=== PATIENT | male | born 1950 | race Caucasian/White ===

== ENCOUNTER → 2016-05-22 | Outpatient (CLI) | payer MEDICARE ==
[2016-05-22 17:18] LABS: ABSOLUTE BASOPHILS # (AUTO) 0.1 10^3/uL (0.0-0.2); ABSOLUTE EOSINOPHILS # (AUTO) 0.3 10^3/uL (0.0-0.6); ABSOLUTE LYMPHOCYTES (AUTO) 1.7 10^3/uL (0.5-4.7); ABSOLUTE MONOCYTES (AUTO) 1.1 10^3/uL (0.1-1.4); ABSOLUTE NEUT (AUTO) 5.4 10^3/uL (1.7-8.2); BASOPHILS % (AUTO) 1.1 % (0-2); EOSINOPHILS % (AUTO) 3.2 % (0-6); HEMATOCRIT 38.4 % (37.9-51.0); HGB HCT DIFFERENCE -2.4; LYMPHOCYTES % (AUTO) 19.6 % (13-45); MEAN CORPUSCULAR HEMOGLOBIN 23.8 pg (27.0-33.4); MEAN CORPUSCULAR HGB CONC 31.2 g/dL (32.0-36.0); MEAN CORPUSCULAR VOLUME 77 fl (80-97); MONOCYTES % (AUTO) 12.4 % (3-13); RED BLOOD COUNT 5.02 10^6/uL (4.35-5.55); RED CELL DISTRIBUTION WIDTH 17.1 % (11.5-14.0); SEGMENTED NEUTROPHILS % (AUTO) 63.7 % (42-78); WHITE BLOOD COUNT 8.5 10^3/uL (4.0-10.5)
[2016-05-22 17:33] LABS: PROTHROMBIN TIME 16.4 SEC (11.4-15.4)
[2016-05-22 17:45] LABS: ANION GAP 17 (5-19); BLOOD UREA NITROGEN 27 mg/dL (7-20); CALCIUM 10.1 mg/dL (8.4-10.2); CARBON DIOXIDE 24 mmol/L (22-30); CHLORIDE 103 mmol/L (98-107); CREATININE RESULT 1.51 mg/dL (0.52-1.25); GLUCOSE 106 mg/dL (75-110); POTASSIUM 4.1 mmol/L (3.6-5.0); SODIUM 143.5 mmol/L (137-145)
== END ==
LOC: OD 16:29
PROVIDERS: ATTEND Internal Medicine Interventional Cardiology
DX: I47.1 Supraventricular tachycardia (principal)
CPT/HCPCS: 36415; 80048; 85025; 85610

== ENCOUNTER 2017-12-17 10:13 | Emergency (ER) | payer MEDICARE ==
[2017-12-17] MEDS ORDERED: NORMAL SALINE 1000 ML 1,000 ML IV ONE (10:20)
--- NOTE | 2017-12-17 10:20 | ER Document Report ---
ED General - General Stated Complaint: BLOOD SUGAR ISSUES Time Seen by Provider: 12/17/17 10:20 TRAVEL OUTSIDE OF THE [place] IN LAST 30 DAYS: No - HPI Patient complains to provider of: weakness Notes: Well-appearing 67-year-old male resents of increasing weakness and fatigue for a few days. Patient checked his sugar this morning found to be greater than 500 heart rate greater than 100. called EMS. Patient states she just has not been feeling well for last 2 days. Patient does not regularly check his blood sugar. Abdominal pain. Patient does have history of only one kidney s/p nephrectomy @ [facility] for renal cell carcinoma Denies fever chills chest pain or cough. - Related Data Allergies/Adverse Reactions: alprazolam [From Xanax] Allergy (Verified 12/17/17 10:29) crab Allergy (Verified 12/17/17 10:29) dronedarone [From Multaq] Allergy (Verified 12/17/17 10:29) flaxseed Allergy (Verified 12/17/17 10:29) cardiolite Allergy (Uncoded 12/17/17 10:29) Past Medical History - Social History Smoking Status: Unknown if Ever Smoked Family History: None Review of Systems - Review of Systems Notes: REVIEW OF SYSTEMS: CONSTITUTIONAL: -fevers, -chills EENT: -eye pain, -difficulty swallowing, -nasal congestion CARDIOVASCULAR: -chest pain, -syncope. RESPIRATORY: -cough, -SOB GASTROINTESTINAL: -abdominal pain, -nausea, -vomiting, -diarrhea GENITOURINARY: -dysuria, -hematuria MUSCULOSKELETAL: -back pain, -neck pain SKIN: -rash or skin lesions. HEMATOLOGIC: -easy bruising or bleeding. LYMPHATIC: -swollen, enlarged glands. NEUROLOGICAL: -altered mental status or loss of consciousness, -headache, - neurologic symptoms PSYCHIATRIC: -anxiety, -depression. ALL OTHER SYSTEMS REVIEWED AND NEGATIVE. Physical Exam - Vital signs Vitals: Resp 21 H 12/17/17 10:19 - Notes Notes: PHYSICAL EXAMINATION: GENERAL: Well-appearing, well-nourished and in severe acute distress. HEAD: Atraumatic, normocephalic. EYES: Pupils equal round and reactive to light, extraocular movements intact, sclera anicteric, conjunctiva are normal. ENT: nares patent, oropharynx clear without exudates. Moist mucous membranes. NECK: Normal range of motion, supple without lymphadenopathy LUNGS: Breath sounds clear to auscultation bilaterally and equal. No wheezes rales or rhonchi. HEART: Regular rate and rhythm without murmurs ABDOMEN: tender RUQ, EXTREMITIES: Normal range of motion, no pitting or edema. No cyanosis. NEUROLOGICAL: Cranial nerves grossly intact. Normal speech, normal gait. Normal sensory and motor exams. PSYCH: Normal mood, normal affect. SKIN: Warm, Dry, normal turgor, no rashes or lesions noted. Course - Re-evaluation Re-evalutation: 12/17/17 14:19 Critically ill-appearing patient presents severe acute distress increasing weakness fatigue and hyperglycemia. now bedside states he has not been able to get off the couch and weeks due to increasing weakness. Patient also endorses some abdominal pain that his is now talking about. Patient is a poor historian not sure if it is altered secondary to hypoglycemia or fatigue and weakness. Extensive lab workup shows profound elevation in white count but no other signs of infection at this time. Sugars improved with fluid resuscitation and 12 units of IV insulin. Patient not requesting any pain medication at this time. Patient has concerning findings elevation of liver enzymes and alk phos. Patient has CAT scan abdomen and pelvis performed shows multiple metastatic lesions. Please see specific radiology report. At that time consult divided made. Speak with Dr. Jv Rowell. Patient will be transferred to [facility] for further evaluation of this new diagnosis of possible metastatic cancer increasing weakness, fatigue, failure to thrive. - Vital Signs Vital signs: Temp Pulse Resp BP Pulse Ox 98.4 F 15 128/85 H 98 12/17/17 10:33 12/17/17 12:01 12/17/17 12:01 12/17/17 12:01 - Laboratory Result Diagrams: 12/17/17 10:25 12/17/17 10:25 Laboratory results interpreted by me: 12/17/17 12/17/17 12/17/17 10:25 10:25 10:25 WBC 30.2 H* Hgb 8.9 L Hct 29.9 L MCV 68 L MCH 20.1 L MCHC 29.8 L RDW 22.2 H Seg Neuts % (Manual) 90 H Lymphocytes % (Manual) 4 L Abs Neuts (Manual) 27.2 H Abs Monocytes (Manual) 1.5 H VBG pH Sodium 127.4 L Potassium 5.4 H Chloride 95 L Carbon Dioxide 20 L BUN 30 H Glucose 480 H* POC Glucose Lactic Acid 2.3 H Calcium 8.3 L Total Bilirubin 1.5 H Direct Bilirubin 1.0 H Alkaline Phosphatase 275 H Total Protein 5.5 L Albumin 2.3 L 12/17/17 12/17/17 12/17/17 10:25 11:38 12:24 WBC Hgb Hct MCV MCH MCHC RDW Seg Neuts % (Manual) Lymphocytes % (Manual) Abs Neuts (Manual) Abs Monocytes (Manual) VBG pH 7.43 H Sodium Potassium Chloride Carbon Dioxide BUN Glucose POC Glucose 459 H* 412 H* Lactic Acid Calcium Total Bilirubin Direct Bilirubin Alkaline Phosphatase Total Protein Albumin Discharge - Discharge Clinical Impression: Hyperglycemia, Weakness, Metastatic cancer Condition: Stable Disposition: [facility] [place] Referrals: JOAN SUNG MD [NO LOCAL MD] - Follow up as needed
[2017-12-17 10:43] LABS: VENOUS BLOOD HCO3 23.1 mmol/L (20-32); VENOUS BLOOD PH 7.43 (7.30-7.42)
[2017-12-17 11:02] LABS: ALANINE AMINOTRANSFERASE 31 U/L (21-72); ALBUMIN 2.3 g/dL (3.5-5.0); ALKALINE PHOSPHATASE 275 U/L (38-126); ANION GAP 12 (5-19); ASPARTATE AMINO TRANSFERASE 31 U/L (17-59); BILIRUBIN,TOTAL 1.5 mg/dL (0.2-1.3); BLOOD UREA NITROGEN 30 mg/dL (7-20); CALCIUM 8.3 mg/dL (8.4-10.2); CARBON DIOXIDE 20 mmol/L (22-30); CHLORIDE 95 mmol/L (98-107); POTASSIUM 5.4 mmol/L (3.6-5.0); SODIUM 127.4 mmol/L (137-145); TOTAL PROTEIN 5.5 g/dL (6.3-8.2)
[2017-12-17 11:12] LABS: GLUCOSE 480 mg/dL (75-110)
[2017-12-17] MEDS ORDERED: INSULIN REG, HUMAN 100 UNIT/ML 3 ML VIAL (PYX) IV ONE (11:15)
[2017-12-17 11:57] LABS: HEMATOCRIT 29.9 % (37.9-51.0); HEMOGLOBIN 8.9 g/dL (13.5-17.0); MEAN CORPUSCULAR HEMOGLOBIN 20.1 pg (27.0-33.4); MEAN CORPUSCULAR HGB CONC 29.8 g/dL (32.0-36.0); MEAN CORPUSCULAR VOLUME 68 fl (80-97); PLATELET COUNT 398 10^3/uL (150-450); RED BLOOD COUNT 4.42 10^6/uL (4.35-5.55); RED CELL DISTRIBUTION WIDTH 22.2 % (11.5-14.0)
[2017-12-17 12:01] LABS: WHITE BLOOD COUNT 30.2 10^3/uL (4.0-10.5)
[2017-12-17 12:02] LABS: ABSOLUTE LYMPHOCYTES# (MANUAL) 1.2 10^3/uL (0.5-4.7); ABSOLUTE MONOCYTES # (MANUAL) 1.5 10^3/uL (0.1-1.4); ABSOLUTE NEUTROPHILS# (MANUAL) 27.2 10^3/uL (1.7-8.2); BASOPHILS % (MANUAL) 0 % (0-2); EOSINOPHILS % (MANUAL) 1 % (0-6); LYMPHOCYTES % (MANUAL) 4 % (13-45); MONOCYTES % (MANUAL) 5 % (3-13); SEGMENTED NEUTROPHILS % (MAN) 90 % (42-78); TOTAL CELLS COUNTED 100
[2017-12-17 12:07] LABS: TOXIC GRANULATION SLIGHT; TOXIC VACUOLATION PRESENT
[2017-12-17 12:08] LABS: ANISOCYTOSIS 3+; HYPOCHROMASIA 1+; PLATELET CLUMPS PRESENT; POIKILOCYTOSIS 1+; POLYCHROMASIA SLIGHT
[2017-12-17 12:09] LABS: PLATELET COMMENT ADEQUATE
--- NOTE | 2017-12-17 13:18 | RADIOLOGY REPORT (SQ) ---
EXAM DESCRIPTION: CT ABD/PELVIS WITH IV ONLY COMPLETED DATE/TIME: 12/17/2017 12:53 pm REASON FOR STUDY: abdominal pain COMPARISON: None. TECHNIQUE: CT scan of the abdomen and pelvis performed using helical scanning technique with dynamic intravenous contrast injection. No oral contrast. Images reviewed with lung, soft tissue, and bone windows. Reconstructed coronal and sagittal MPR images reviewed. Delayed images for evaluation of the urinary system also acquired. All images stored on PACS. All CT scanners at this facility use dose modulation, iterative reconstruction, and/or weight based d osing when appropriate to reduce radiation dose to as low as reasonably achievable (ALARA). [facility]: Dose Right [facility]: CareDose [facility]: Dose Right [facility]: Teradose 4D [facility]: Multichannel CONTRAST TYPE AND DOSE: contrast/concentration: Isovue mg/ml; Total Contrast Delivered: 100.0 ml; T otal Saline Delivered: 72.0 ml RENAL FUNCTION: BUN 30 creatinine 0.0. RADIATION DOSE: CT Rad equipment meets quality standard of care and radiation dose reduction techniq ues were employed. CTDIvol: 20.5 - 21.1 mGy. DLP: 2632 mGy-cm.. LIMITATIONS: None. FINDINGS: LOWER CHEST: Small pleural effusions. LIVER: Multiple irregular predominately low-attenuation lesions scattered throughout the liver. On e dominga contrast imaging there is suggestion of irregular peripheral enhancement. Many of these lesions measure up to 6 or 7 cm. No dilated ducts SPLEEN: Normal size. No focal lesions. PANCREAS: Irregular low-attenuation lesion in the tail measuring 3.3 x 4.3 cm. Irregular moderately thickened wall. No significant calcifications. No adjacent inflammation or peripancreatic fluid colle ctions. Pancreatic duct not dilated. GALLBLADDER: No identified stones by CT criteria. No inflammatory changes to suggest cholecystitis. ADRENAL GLANDS: No significant masses or asymmetry. RIGHT KIDNEY AND URETER: Surgically absent. LEFT KIDNEY AND URETER: No solid masses. Several calyceal calculi. No hydronephrosis or hydrouret er. AORTA AND VESSELS: No aneurysm. No dissection. Renal arteries, SMA, celiac without stenosis. RETROPERITONEUM: No retroperitoneal adenopathy, hemorrhage or masses. BOWEL AND PERITONEAL CAVITY: Previous gastric bypass. No masses or inflammatory changes. No free flu id or peritoneal masses. APPENDIX: Normal. PELVIS: No mass. No free fluid. Normal bladder. ABDOMINAL WALL: No masses. Anterior abdominal wall hernia containing several loops of bowel and colo n. BONES: No significant or acute findings. OTHER: No other significant finding. IMPRESSION: 1. MULTIPLE IRREGULAR HEPATIC LESIONS WHICH ARE SUSPICIOUS FOR METASTASES. 2. IRREGULAR LOW-ATTENUATION LESION IN THE TAIL OF THE PANCREAS CONCERNING FOR MALIGNANCY, EITHER DEBBIE JUAN R PANCREATIC NEOPLASM OR METASTATIC LESION. 3. MIDLINE ANTERIOR ABDOMINAL WALL HERNIA CONTAINING LOOPS OF BOWEL AND COLON WITH NO MECHANICAL OBST RUCTION. 4. SMALL PLEURAL EFFUSIONS. 5. NONOBSTRUCTING CALYCEAL CALCULI IN THE LEFT KIDNEY. 6. RIGHT KIDNEY SURGICALLY ABSENT. UNKNOWN IF THIS WAS DUE TO MALIGNANCY OR BENIGN PROCESS AND UNKNO WN IF THIS WAS RECENT OR REMOTE. 7. PRESUMABLY THE PATIENT HAS HAD PRIOR IMAGING ELSEWHERE GIVEN THE PREVIOUS HISTORY OF NEPHRECTOMY A S WELL GASTRIC BYPASS. RECOMMEND CORRELATION WITH CLINICAL HISTORY AND RESULTS OF PRIOR STUDIES. TECHNICAL DOCUMENTATION: JOB ID: [id number] Quality ID # [id number]: Final reports with documentation of one or more dose reduction techniques (e.g., Au tomated exposure control, adjustment of the mA and/or kV according to patient size, use of iterative reconstruction technique) 2010 [employer]- All Rights Reserved Reading location - IP/workstation name: [email or web address]
--- NOTE | 2017-12-17 14:16 | EKG REPORT ---
SEVERITY:- ABNORMAL ECG - SINUS TACHYCARDIA PAIRED VENTRICULAR PREMATURE COMPLEXES LOW VOLTAGE THROUGHOUT BORDERLINE T WAVE ABNORMALITIES : Confirmed by: Nathan Vargas MD 17-Dec-2017 14:15:30
[2017-12-17 15:49] LABS: APPEARANCE,URINE SLIGHTLY-CLOUDY; BILIRUBIN,URINE NEGATIVE (NEGATIVE); COLOR,URINE YELLOW; GLUCOSE, URINE >=500 mg/dL (NEGATIVE); KETONES,URINE NEGATIVE (NEGATIVE); LEUKOCYTE ESTERASE,URINE NEGATIVE (NEGATIVE); NITRITE,URINE NEGATIVE (NEGATIVE); PROTEIN,URINE NEGATIVE (NEGATIVE); URINE SPECIFIC GRAVITY 1.042
[2017-12-17] MEDS ORDERED: NYSTATIN/DEXAMETH/DIPHEN SUSP 120 ML PO ONE (17:46)
[2017-12-17] MEDS ORDERED: MORPHINE SULFATE 10 MG/ML INJ IV ONE (19:43)
[2017-12-17] MEDS ORDERED: ONDANSETRON HCL INJ/PF 4 MG/2 ML SDV IV ONE (19:44)
[2017-12-18 06:28] VITALS: BP 135/86
[2017-12-18 11:09] LABS: PATH REVIEW PATHOLOGIST REVIEWED
== END 2017-12-17 21:45 | disposition short-term general hospital (02) ==
LOC: ER 10:13
DX: R73.9 Hyperglycemia, unspecified (principal); R62.7 Adult failure to thrive; C79.9 Secondary malignant neoplasm of unspecified site; Z85.528 Personal history of other malignant neoplasm of kidney; Z90.5 Acquired absence of kidney; R53.83 Other fatigue; R53.1 Weakness; R10.9 Unspecified abdominal pain; D72.829 Elevated white blood cell count, unspecified; R74.8 Abnormal levels of other serum enzymes; R10.811 Right upper quadrant abdominal tenderness; Z88.8 Allergy status to other drugs, medicaments and biological substances; Z91.013 Allergy to seafood; Z91.018 Allergy to other foods
CPT/HCPCS: 93005; 99285; 96361; 96374; 96375; 36415; 82962; 83605; 85025; 80076; 80048; 81001; 84484; 82803; 74177; 93010; J2270; A9270 ×2; J2405; J7030; J1815; J3490